=== PATIENT | male | born 1930 | race Caucasian/White ===

== ENCOUNTER 2018-08-05 18:05 | Inpatient (IN) ==
[2018-08-05] MEDS ORDERED: *HR* Dextrose 50 % in Water (Syg) 50 ML SYRINGE IVP PRN (22:37)
[2018-08-05] MEDS ORDERED: D5% in Water 1,000 ML IVC PRN (22:37)
[2018-08-05] MEDS ORDERED: Dextrose Gel 15 GM/37.5 ML TUBE PO PRN ×2 (22:37)
[2018-08-05] MEDS ORDERED: Insulin LISPRO 300 UNITS/3 ML VIAL SQ SCH (22:45)
[2018-08-05 22:53] LABS: Basophils % 0.4 %; Eosinophils # 0.1 K/mcL (0.0-0.6); Eosinophils % 0.6 %; Hematocrit 40.2 % (37.5-50.1); Hemoglobin 13.4 g/dL (12.9-16.9); Immature Granulocytes % 0.4 % (0-4); Lymphocytes # 0.9 K/mcL (0.6-4.6); Lymphocytes % 8.4 %; Mean Corpuscular HGB Conc 33.3 g/dL (31.6-35.5); Mean Corpuscular Hemoglobin 31.6 pg (28.0-33.3); Mean Corpuscular Volume 94.8 fL (83.0-100.0); Mean Platelet Volume 8.4 fL (9.4-12.4); Monocytes % 10.2 %; Neutrophils # 8.1 K/mcL (1.6-8.9); Platelet Count 194 K/mcL (140-400); Red Blood Count 4.24 M/mcL (4.19-5.50)
[2018-08-05 22:57] LABS: INR 1.1; Prothrombin Time 12.2 Seconds (9.4-12.1)
[2018-08-05 23:00] LABS: Activated Partial Thrombo Time 31.2 Seconds (26.0-36.0)
[2018-08-05] MEDS ORDERED: Acetaminophen 325 MG TABLET PO PRN (23:03)
[2018-08-05] MEDS ORDERED: Naloxone 0.4 MG/ML INJ IVP PRN (23:03)
[2018-08-05 23:08] LABS: Blood Urea Nitrogen 19 mg/dL (8-23); Calcium 9.2 mg/dL (8.6-10.3); Carbon Dioxide 22 mEq/L (23-29); Chloride 105 mEq/L (98-107); Glucose 146 mg/dL (70-105); Osmolality,Calculated 285 (280-300); Potassium 4.2 mEq/L (3.5-5.1); Sodium 135 mEq/L (136-145)
[2018-08-05] MEDS ORDERED: 0.9 % Sodium Chloride 1,000 ML IVC SCH (23:15)
[2018-08-06] MEDS: *HR* HYDROcodone/Acet 5/325 mg TABLET PO PRN ×2 (00:19→08:31)
[2018-08-06 01:22] LABS: Basophils % 0.4 %; Eosinophils # 0.1 K/mcL (0.0-0.6); Eosinophils % 1.4 %; Hemoglobin 11.4 g/dL (12.9-16.9); Immature Granulocytes % 0.3 % (0-4); Lymphocytes # 0.8 K/mcL (0.6-4.6); Lymphocytes % 8.4 %; Mean Corpuscular HGB Conc 32.6 g/dL (31.6-35.5); Mean Corpuscular Hemoglobin 30.8 pg (28.0-33.3); Mean Corpuscular Volume 94.6 fL (83.0-100.0); Mean Platelet Volume 8.7 fL (9.4-12.4); Monocytes # 0.9 K/mcL (0.0-1.3); Monocytes % 9.5 %; Neutrophils # 7.3 K/mcL (1.6-8.9); Platelet Count 192 K/mcL (140-400); Red Cell Distribution Width 13.1 % (11.5-14.5)
--- NOTE | 2018-08-06 01:23 | Internal Med History&Physical ---
Date of Encounter: 08/05/18 Time of Encounter: 22:05 Internal Medicine - H&P: HPI Chief complaint: hip fracture Admitted From: Hospital to Hospital Transfer Plans for Post Hospital Care: [facility] History of present illness: Mr. Ariza is an 88 year old male who presents in transfer from [facility] ER with acute left femoral neck fracture. Patient sustained a mechanical fall earlier this evening when he was getting out of his car. He normally ambulates with a walker due to peripheral neuropathy. His aide was bringing his walker to him to the car as he was exiting. However, despite the presence of walker and support, he slipped and fell sustaining a hip injury with subsequent fracture. He was taken to the ER at [place] where they did imaging and noted his fracture. He subsequently transferred here to [facility] for definitive care. Upon my assessment of the patient, he complains of his left hip pain but has no other complaints. Patient and his provide the above history. He has a history of heart disease requiring PCI and stent roughly 8 or 9 years ago. He also has a history of type 2 diabetes, currently diet-controlled. His neuropathy is due to his diabetes he states. He used to take diabetic pills but has lost significant amount of weight and no longer takes medication for his diabetes. Regarding the fall today, he denies any lightheadedness, dizziness, or syncopal spell. Despite his neuropathy and use of a walker, he denies any frequent falls. Past Med Surg Social Fam HX - Past Medical History Attestation: Yes The following information was validated with the patient. Source: patient, obtained from family Medical history: coronary artery disease, GERD, hyperlipidemia, myocardial infarction, thyroid disease, other Additional medical history: NEUROPATHY. Psychiatric history: no psych history - Past Surgical History Surgical History: angioplasty/stent - Social History Smoking Status: Former smoker Smokeless Tobacco Status: No Alcohol use: none Drug use: none Current living situation: Home, With Family Activity Level: Uses cane/walker Recent Out of Country Travel Within the Last 8 Weeks: No - Family History Mother Living Status: Hx Family Cardiac Disorders: No Father Living Status: Hx Family Cardiac Disorders: Yes Internal Medicine - H&P: Meds Plavix 75 mg PO DAILY 12/12/17 [History] Atorvastatin 20 mg PO DAILY 08/05/18 [History] Cetirizine HCl [Zyrtec] 10 mg PO DAILY 08/05/18 [History] Ferrous Sulfate [Iron] 325 mg PO TID 08/05/18 [History] Gabapentin [Neurontin] 300 mg PO TID 08/05/18 [History] Levothyroxine [Synthroid] 112 mcg PO 0630 08/05/18 [History] Pantoprazole Sodium [Protonix] 40 mg PO DAILY 08/05/18 [History] Triamcinolone [Triamcinolone] 1 appl TP AD PRN 08/05/18 [History] 3 Allergy/AdvReac Type Severity Reaction Status Date / Time No Known Allergies Allergy Verified 12/12/17 14:33 - Constitutional Constitutional: no chills, no fever(s) - EENT Eyes: no blurry vision, no change in vision Ears: no ear pain, no tinnitus Nose, mouth and throat: no nasal congestion, no sinus pressure, no sore throat - Cardiovascular Cardiovascular ROS IM: no chest pain, no diaphoresis, no dyspnea, no dyspnea on exertion, no irregular heart rhythm, no lightheadedness, no palpitations, no syncope - Respiratory Respiratory: no cough, no dyspnea, no hemoptysis - Gastrointestinal Gastrointestinal: no abdominal pain, no diarrhea, no hematemesis, no hematochezia, no melena, no nausea, no vomiting - Genitourinary Genitourinary ROS male: no dysuria, no flank pain, no hematuria - Musculoskeletal Musculoskeletal ROS IM: arthralgias, numbness (feet/peripheral neuropathy -- chronic), no back pain, no muscle cramps, no muscle weakness, no myalgias - Integumentary Integumentary IM: no rash, no jaundice - Neurological Neurological ROS: no dizziness, no focal weakness, no frequent falls, no headache(s) - Psychiatric Psychiatric: no anxiety, no depression - Endocrine Endocrine IM: no polydipsia, no polyuria - Allergic/Immunologic Allergic/Immunologic: no wheezing, no GI upset with certain foods - Constitutional Vitals: Temp Pulse Resp BP Pulse Ox 98.8 F 90 16 140/72 96 08/05/18 23:32 08/05/18 23:32 08/05/18 23:32 08/05/18 23:32 08/05/18 23:32 General appearance: Present: cooperative, mild distress, A&O X 3, pleasant, answers questions appropriately Exam: see below - Head Head exam: Present: atraumatic, normal inspection - Eye Eye exam: Present: EOMI, PERRL. Absent: scleral icterus Pupils: Present: normal accommodation - ENT ENT exam: Present: mucous membranes dry, normal exam, normal oropharynx - Neck Neck exam general surgery: Present: full ROM, supple. Absent: tenderness, nuchal rigidity, thyromegaly - Respiratory Respiratory exam: Present: CTAB. Absent: chest wall tenderness, rales, rhonchi , wheezes - Cardiovascular Cardiovascular exam: Present: distant heart sounds, RRR, +S1, +S2. Absent: diastolic murmur, systolic murmur - GI/Abdominal GI/Abdominal exam: Present: normal bowel sounds, soft. Absent: guarding, hepatomegaly, mass, rebound, splenomegaly, tenderness - Extremities Exam Extremities exam: Present: normal capillary refill, normal inspection, tenderness, warm, radial pulses palpable and symmetrical. Absent: calf tenderness, pedal edema Additional comments: pain/swelling left hip - Back Exam Back exam: Absent: CVA tenderness (L), CVA tenderness (R) - Neurological Exam Neurological exam: Present: alert, CN II-XII intact, oriented X3 Additional comments: decreased sensation both feet - Psychiatric Psychiatric exam: Present: normal affect, normal mood - Skin Skin exam: Present: dry, intact, warm Internal Med - H&P Results - Labs CBC & Chem 7: 08/05/18 22:34 08/05/18 21:46 Labs: Short CBC 08/05/18 Range/Units 22:34 WBC 10.2 (4.3-11.1) K/mcL Hgb 13.4 (12.9-16.9) g/dL Hct 40.2 (37.5-50.1) % Plt Count 194 (140-400) K/mcL Neutrophils # 8.1 (1.6-8.9) K/mcL BMP 08/05/18 21:46 Sodium 135 L Potassium 4.2 Chloride 105 Carbon Dioxide 22 L BUN 19 Glucose 146 H Calcium 9.2 - Diagnostic Studies CT scan - pelvis Status: image reviewed by me (left femoral neck fracture) - Assessment and plan (1) Left displaced femoral neck fracture Current Visit: Yes Status: Acute Assessment and plan: 1. Consult orthopedics for surgical repair. 2. Recommend awaiting work-up per hospitalist before taking patient to surgery. 3. Patient will be at moderate risk for heydi-operative morbidity and mortality form a cardiovascular standpoint due to history of CAD and diabetes. 4. Patient need PT/OT and likely ECF/rehab after discharge and surgery. (2) CAD (coronary artery disease) Current Visit: Yes Status: Chronic Assessment and plan: 1. Will order EKG and baseline ECHO to assess LV function. 2. Monitor on telemetry. 3. Await above testing before proceeding with surgery. Qualifiers: Coronary Disease-Associated Artery/Lesion type: [place] artery [place] vs. transplanted heart: [place] heart Associated angina: without angina Qualified Code(s): I25.10 - Atherosclerotic heart disease of [place] coronary artery without angina pectoris (3) Type 2 diabetes mellitus Current Visit: Yes Status: Chronic Assessment and plan: 1. Patient reports diet control. 2. Will place on SSI and monitor glucose closely. 3. Adjust insulin dosing as necessary. Qualifiers: Diabetes mellitus mcc insulin use: without mcc use Diabetes mellitus complication status: with neurologic complications Diabetes mellitus complication detail: with polyneuropathy Qualified Code(s): E11.42 - Type 2 diabetes mellitus with diabetic polyneuropathy (4) DVT prophylaxis Current Visit: Yes Status: Acute Assessment and plan: 1. Heparin SQ.
[2018-08-06 01:46] LABS: BUN/Creatinine Ratio 15 (6-26); Blood Urea Nitrogen 20 mg/dL (8-23); Carbon Dioxide 27 mEq/L (23-29); Chloride 104 mEq/L (98-107); Glucose 158 mg/dL (70-105); INR 1.1; Magnesium 2.3 mg/dL (1.6-2.6); Osmolality,Calculated 288 (280-300); Potassium 4.2 mEq/L (3.5-5.1); Prothrombin Time 12.4 Seconds (9.4-12.1); Sodium 136 mEq/L (136-145); eGFR For Non-African Americans 50 (> 60)
[2018-08-06 02:33] LABS: BUN/Creatinine Ratio 15 (6-26); eGFR For Non-African Americans 52 (> 60)
[2018-08-06] MEDS ORDERED: *HR* Heparin 5,000 UNIT/ML VIAL SQ SCH (06:00)
--- NOTE | 2018-08-06 07:09 | Orthopedic Consult Note ---
Date of Encounter: 08/06/18 Time of Encounter: 07:07 Assessment and Plan (1) Left displaced femoral neck fracture Current Visit: No Status: Acute I did discuss the diagnosis in detail with the patient. He does have a left displaced femoral neck fracture. Treatment options were discussed and my recommendation was for left hip hemiarthroplasty in order to stabilize the hip, provide pain control, and to help facilitate nursing care. The risks discussed included but were not limited to stiffness, bleeding, infection, blood clots, damage to neurovascular structures, tendons, ligaments, and bone. Also discussed was the risk of continued symptoms and possible need for further procedures. I did discuss the anesthesia risks including stroke, heart attack, and . I did discuss the risks of dislocation and prosthetic fracture. I did discuss this all with the patient in simple terms and he did wish to proceed and consent was obtained. History of Present Illness HPI: Mr. Ariza is a 88 year old male who is currently admitted to the hospitalist after a fall that caused a displaced left femoral neck fracture. He is a walker ambulator with baseline neuropathy. He complains of isolated left hip pain. He denies headaches, neck pain, chest pain, abdominal pain, bilateral upper extremity pain, and right lower extremity pain. He denies numbness, tingling, or any other associated signs or symptoms. Symptoms on the left hip and groin include achy and sharp pain which is worse with movement and use and better with rest. No other modifying factors. Past Med Surg Social Fam HX - Past Medical History Medical history: coronary artery disease, GERD, hyperlipidemia, myocardial infarction, thyroid disease, other Additional medical history: NEUROPATHY. Psychiatric history: no psych history - Past Surgical History Surgical History: angioplasty/stent Additional surgical history: REPAIR "LOOSE VEIN IN HEART." - Social History Smoking Status: Former smoker Smokeless Tobacco Status: No Alcohol use: none Drug use: none - Family History Mother Living Status: Hx Family Cardiac Disorders: No Father Living Status: Hx Family Cardiac Disorders: Yes Medications and Allergies Plavix 75 mg PO DAILY 12/12/17 [History] Atorvastatin 20 mg PO DAILY 08/05/18 [History] Cetirizine HCl [Zyrtec] 10 mg PO DAILY 08/05/18 [History] Ferrous Sulfate [Iron] 325 mg PO TID 08/05/18 [History] Gabapentin [Neurontin] 300 mg PO TID 08/05/18 [History] Levothyroxine [Synthroid] 112 mcg PO 0630 08/05/18 [History] Pantoprazole Sodium [Protonix] 40 mg PO DAILY 08/05/18 [History] Triamcinolone [Triamcinolone] 1 appl TP AD PRN 08/05/18 [History] 3 Allergy/AdvReac Type Severity Reaction Status Date / Time No Known Allergies Allergy Verified 12/12/17 14:33 All Systems Reviewed: Constitutional and musculoskeletal systems were reviewed and are negative unless otherwise stated in history of present illness. Physical Exam - Constitutional Vitals: Temp Pulse Resp BP Pulse Ox 99.4 F 98 16 91/53 94 08/06/18 06:39 08/06/18 06:39 08/06/18 06:39 08/06/18 06:39 08/06/18 06:39 Constitutional -Vitals reviewed -The patient is well developed and well nourished. -Mood is pleasant. -The patient is well groomed. Psychiatric -The patient is fully alert and oriented x 3. Respiratory: -Respiratory effort normal Abdomen: -Soft abdomen -Non tender -Non distended: Left upper extremity: -No deformities. The overlying skin is intact. No obvious signs of acute trauma. -No tenderness to palpation throughout. -No significant pain with passive motion of the shoulder, elbow, wrist, and fingers within the limits of the bed. -Able to make an "OK" sign, cross the index and long fingers, and extend the thumb. -Sensation grossly intact to light touch throughout the median, radial, and ulnar distributions. -Radial pulse is present; Fingers have good capillary refill. Right upper extremity: -No deformities. The overlying skin is intact. No obvious signs of acute trauma. -No tenderness to palpation throughout. -No significant pain with passive motion of the shoulder, elbow, wrist, and fingers within the limits of the bed. -Able to make an "OK" sign, cross the index and long fingers, and extend the thumb. -Sensation grossly intact to light touch throughout the median, radial, and ulnar distributions. -Radial pulse is present; Fingers have good capillary refill. Left lower extremity: -The extremity is shortened and externally rotated. The overlying skin is intact. -There is tenderness in the groin region as well as the proximal lateral thigh. -I did not range the hip due to the known fracture. -No tenderness along the distal thigh, leg, ankle, foot, or toes. -Able to dorsiflex and plantarflex the ankle and toes. -Sensation is grossly intact to light touch throughout the sural, saphenous, superficial peroneal, and deep peroneal distributions. -Toes have good capillary refill. Right lower extremity: -No deformities. The overlying skin is intact. No obvious signs of acute trauma. -No tenderness to palpation throughout. -No pain with passive motion of the hip, knee, ankle, and toes within the limits of the bed. -No pain with axial loading of the thigh. -Able to dorsiflex and plantarflex the ankle and toes. -Sensation is grossly intact to light touch throughout the sural, saphenous, superficial peroneal, and deep peroneal distributions. -Toes have good capillary refill. Diagnostic Imaging: I did personally review and interpret the CT scan of the left hip which shows a displaced left femoral neck fracture Results - Labs Result Diagrams: 08/06/18 01:03 08/06/18 01:03 Labs: Abnormal lab results RBC 3.70 M/mcL (4.19-5.50) L 08/06/18 01:03 Hgb 11.4 g/dL (12.9-16.9) L D 08/06/18 01:03 Hct 35.0 % (37.5-50.1) L 08/06/18 01:03 MPV 8.7 fL (9.4-12.4) L 08/06/18 01:03 PT 12.4 Seconds (9.4-12.1) H 08/06/18 01:03 Creatinine 1.36 mg/dL (0.70-1.30) H 08/06/18 01:03 Est GFR (Non-Af Amer) 50 (> 60) L 08/06/18 01:03 Glucose 158 mg/dL (70-105) H 08/06/18 01:03 H & H 08/05/18 08/06/18 Range/Units 22:34 01:03 Hgb 13.4 11.4 L D (12.9-16.9) g/dL Hct 40.2 35.0 L (37.5-50.1) % All other labs normal. Consult Discharge Plan - Plan Referrals: Edwin Bryant, ASSISTED LIVING ASSOCIATE [Primary Care Provider] -
[2018-08-06] MEDS: Insulin LISPRO 300 UNITS/3 ML VIAL SQ SCH ×3 (07:24→21:47)
[2018-08-06] MEDS ORDERED: [UNRECOGNIZED DRUG - OTHER] TP PRN (11:12)
--- NOTE | 2018-08-06 14:43 | Anesthesia Evaluation PreOp ---
Date of Encounter: 08/06/18 Time of Encounter: 15:11 - Past History Planned Operation: LEFT HIP HEMIARTHROPLASTY Cardiac History: [place] (??DATE, AFTER STENT), Hyperlipidemia, Cardiac Stent (??DATE ), Other (CAD) Pulmonary History: Former smoker, COPD [employer] History: Other (PERIPHERAL NEUROPATHY, TREMORS) Other Medical History: Renal (CKD3), Diabetes Type II, Thyroid, GERD, Other ( ANEMIA) Anesthesia History: No Prior Anesthetic Complications, Past Anesthesia Alcohol Use: none Drug use: none Medications and Allergies Clopidogrel [Plavix] 75 mg PO DAILY 12/12/17 [History] Atorvastatin Calcium [Lipitor] 20 mg PO QPM 08/05/18 [History] Cetirizine HCl [Zyrtec] 10 mg PO DAILY 08/05/18 [History] Ferrous Sulfate [Iron] 325 mg PO TID 08/05/18 [History] Gabapentin [Neurontin] 100 mg PO TID 08/05/18 [History] Levothyroxine [Synthroid] 112 mcg PO 0630 08/05/18 [History] Pantoprazole Sodium [Protonix] 40 mg PO DAILY 08/05/18 [History] Triamcinolone [Triamcinolone] 1 appl TP AD PRN 08/05/18 [History] 3 Allergy/AdvReac Type Severity Reaction Status Date / Time No Known Allergies Allergy Verified 12/12/17 14:33 - Meds/Allergy Pre-op Review Medications Reviewed: Yes Allergies Reviewed: Yes Anesthesia Results - Labs 08/06/18 01:03 08/06/18 01:03 Laboratory Last Values WBC 9.1 K/mcL (4.3-11.1) 08/06/18 01:03 RBC 3.70 M/mcL (4.19-5.50) L 08/06/18 01:03 Hgb 11.4 g/dL (12.9-16.9) L D 08/06/18 01:03 Hct 35.0 % (37.5-50.1) L 08/06/18 01:03 MCV 94.6 fL (83.0-100.0) 08/06/18 01:03 MCH 30.8 pg (28.0-33.3) 08/06/18 01:03 MCHC 32.6 g/dL (31.6-35.5) 08/06/18 01:03 RDW 13.1 % (11.5-14.5) 08/06/18 01:03 Plt Count 192 K/mcL (140-400) 08/06/18 01:03 MPV 8.7 fL (9.4-12.4) L 08/06/18 01:03 Immature Gran % 0.3 % (0-4) 08/06/18 01:03 Seg Neutrophils % 80.0 % 08/06/18 01:03 Lymphocytes % 8.4 % 08/06/18 01:03 Monocytes % 9.5 % 08/06/18 01:03 Eosinophils % 1.4 % 08/06/18 01:03 Basophils % 0.4 % 08/06/18 01:03 Neutrophils # 7.3 K/mcL (1.6-8.9) 08/06/18 01:03 Lymphocytes # 0.8 K/mcL (0.6-4.6) 08/06/18 01:03 Monocytes # 0.9 K/mcL (0.0-1.3) 08/06/18 01:03 Eosinophils # 0.1 K/mcL (0.0-0.6) 08/06/18 01:03 Basophils # 0.0 K/mcL (0.0-0.2) 08/06/18 01:03 PT 12.4 Seconds (9.4-12.1) H 08/06/18 01:03 INR 1.1 08/06/18 01:03 APTT 30.0 Seconds (26.0-36.0) 08/06/18 01:03 Sodium 136 mEq/L (136-145) 08/06/18 01:03 Potassium 4.2 mEq/L (3.5-5.1) 08/06/18 01:03 Chloride 104 mEq/L (98-107) 08/06/18 01:03 Carbon Dioxide 27 mEq/L (23-29) 08/06/18 01:03 BUN 20 mg/dL (8-23) 08/06/18 01:03 Creatinine 1.36 mg/dL (0.70-1.30) H 08/06/18 01:03 Est GFR ( Amer) > 60 (> 60) 08/06/18 01:03 Est GFR (Non-Af Amer) 50 (> 60) L 08/06/18 01:03 BUN/Creatinine Ratio 15 (6-26) 08/06/18 01:03 Glucose 158 mg/dL (70-105) H 08/06/18 01:03 Calculated Osmolality 288 (280-300) 08/06/18 01:03 Calcium 9.0 mg/dL (8.6-10.3) 08/06/18 01:03 Magnesium 2.3 mg/dL (1.6-2.6) 08/06/18 01:03 Anesthesia Exam Vital Signs/O2 Sat/Glucose, Most Recent Temp Pulse Resp BP Pulse Ox 98.9 F 87 18 116/72 93 08/06/18 10:40 08/06/18 10:40 08/06/18 10:40 08/06/18 10:40 08/06/18 10:40 Blood Glucose* 126 HEIGHT 1.88 M WEIGHT 87 KG BMI 25 NPO (# of Hours): 8 - HEENT Pupil (Motor): Pupils equal Mallampati: III Teeth: Edentulous Oral Opening: Greater than 3 - Cardiac Rhythm: Regular - Pulmonary Breath Sounds: bilateral Clear Respiratory Effort: Symmetrical - Additional Findings Active Medications Acetaminophen (Tylenol) 650 mg PO Q6H PRN PRN Reason: Mild Pain/Fever Stop: 02/04/19 23:04 Hydrocodone Bitart/Acetaminophen (Brandon 5-325 Mg) 1 tab PO Q6H PRN PRN Reason: Moderate Pain Stop: 02/04/19 23:04 Last Admin: 08/06/18 08:31 Dose: 1 tab Atorvastatin Calcium (Lipitor) 20 mg PO QPM [facility] Stop: 02/05/19 18:01 Clopidogrel Bisulfate (Plavix) 75 mg PO DAILY [facility] Stop: 02/06/19 09:01 Heparin Sodium (Porcine) (Heparin) 5,000 unit SQ Q12HCO [facility] Stop: 02/05/19 06:01 Last Admin: 08/06/18 04:49 Dose: Not Given Sodium Chloride (0.9 % Sodium Chloride) 1,000 mls @ 75 mls/hr IVC .[id number] [facility] Stop: 08/07/18 01:54 Last Admin: 08/06/18 00:16 Dose: 75 mls/hr Insulin Human Lispro (Humalog) 0 units SQ TIDAC [facility] PRN Reason: Protocol Stop: 02/05/19 07:31 Last Admin: 08/06/18 11:23 Dose: Not Given Levothyroxine Sodium (Synthroid) 112 mcg PO 0630 [facility] Stop: 02/06/19 06:31 Loratadine (Claritin) 10 mg PO DAILY [facility] Stop: 02/06/19 09:01 Omeprazole (Prilosec) 20 mg PO DAILY [facility] Stop: 02/06/19 09:01 Anesthesia Assess/Plan ASA Score: 3 Modified Wen Scale for Level of Consciousness: Cooperative, oriented, and tranquil Anesthetic Plan: General Monitoring Plan: Standard Monitors Recovery Plan: PACU
[2018-08-06] MEDS ORDERED: Gabapentin 100 MG CAPSULE PO SCH (15:00)
[2018-08-06] MEDS ORDERED: CeFAZolin Syr 2,000MG/20 ML 2,000 MG/20 ML SYRINGE IVPB ONE (15:29)
[2018-08-06] MEDS ORDERED: Vancomycin 1,000 MG VIAL ONE (15:37)
[2018-08-06] MEDS ORDERED: Ethanol\\Acetic Acid\\Na Ace\\Ben 1,000 ML IRRIG.SOLN IR ONE (15:38)
[2018-08-06] MEDS ORDERED: *HR* PHENYLEPHRINE 1,000 MCG/10 ML SYRINGE IVP ONE (16:38)
[2018-08-06] MEDS ORDERED: *HR* Succinylcholine 200 MG/10 ML VIAL IVP ONE (16:38)
[2018-08-06] MEDS ORDERED: *HR* FentaNYL (PF) 100 MCG/2 ML VIAL ONE (16:38)
[2018-08-06] MEDS ORDERED: Lidocaine -MPF 2% 2 ML VIAL ONE (16:38)
[2018-08-06] MEDS ORDERED: *HR* Propofol 200 MG/20 ML VIAL IVP ONE (16:38)
[2018-08-06] MEDS ORDERED: Lidocaine -MPF 4% 5 ML AMPUL ONE (16:38)
[2018-08-06] MEDS ORDERED: *HR* Labetalol 20 MG/4 ML SYRINGE IVP PRN (16:40)
[2018-08-06] MEDS ORDERED: *HR* HYDROmorphone 2 MG TABLET PO PRN (16:40)
[2018-08-06] MEDS ORDERED: *HR* OxyCODONE Immed Rel 5 MG TABLET PO PRN (16:40)
[2018-08-06] MEDS ORDERED: EPHEDrine 50 MG/ML VIAL ONE (17:23)
--- NOTE | 2018-08-06 17:32 | Event Note ---
Date of Encounter: 08/06/18 Time of Encounter: 17:31 Patient seen and evaluated. Clinically stable. WIll continue to follow in the morning.
[2018-08-06] MEDS ORDERED: Ondansetron 4 MG/2 ML VIAL ONE (17:41)
[2018-08-06] MEDS ORDERED: *HR* Morphine 10 MG/ML VIAL ONE (17:48)
--- NOTE | 2018-08-06 18:08 | Orthopedic Operative Note ---
Date of procedure: 08/06/18 Procedure: OPERATIVE REPORT DATE OF PROCEDURE: 08/06/2018 SURGEON: Gil Bowers MD CHANGE HOUSE ATTENDANT(S): There were no assistants PREOPERATIVE DIAGNOSIS: Left displaced femoral neck fracture POSTOPERATIVE DIAGNOSIS: Left displaced femoral neck fracture PROCEDURE: Left hip hemiarthroplasty ANESTHESIA: Gen. anesthesia PREOPERATIVE ANTIBIOTICS: 2 grams of Ancef ESTIMATED BLOOD LOSS: 100 milliliters SPECIMENS: Left femoral head IMPLANTS: Biomet Echo Fracture stem size 12 with high offset; 56mm bipolar Head ; -6 neck PREOPERATIVE NOTE AND INDICATIONS: This patient is an 88-year-old male who sustained a fall resulting in a left displaced femoral neck fracture. Treatment options were discussed and the recommendation was for left hip hemiarthroplasty to stabilize left hip to provide pain control and to help facilitate nursing care. The surgical plan was discussed with the patient. The risks, benefits, alternatives, and potential complications of this procedure were discussed with the patient including injury to veins, arteries, nerves, tendons, ligaments, and bone. Also discussed were the risks of infection, bleeding, pain, blood clots, the possible need for a blood transfusion, the possible need for further procedures, heart attack, stroke, and . Additional risks include prosthetic dislocation, fracture, and infection. All of this was explained in simple terms, and the patient verbalized understanding and wished to proceed. Consent was given to proceed with surgery. PROCEDURE: The patient was seen in the preoperative holding area where the identify and the consent were confirmed. The left hip was marked. Final questions were answered. The patient was brought back to the operating room. A huddle was performed with the patient and all vital surgical team members confirming patient identity, the correct procedure, and the correct operative site. General anesthesia was administered. The patient was placed supine on the operating room table and then placed in the right lateral decubitus position. The axillary roll was placed and all bony prominences were padded. The left lower extremity was prepped and draped in the usual sterile fashion. A surgical time out was performed immediately preceding the incision with all personnel in the operating room to confirm patient identity, the correct operative site and extremity, correct radiographic studies, availability of appropriate surgical equipment, and agreement on the planned procedure. A 15 cm longitudinal curvilinear incision was made and dissection proceeded through the subcutaneous tissue using a Bovie for electrocautery. The fascia was encountered and incised splitting the fibers of the gluteus dontae proximally. The Charnley retractor was placed. A Cobra was placed under the gluteus medius and the piriformis was taken down and tagged. While internally rotating the femur the short external rotators and the capsule was taken down in 1 sleeve. This exposed the fracture and an osteotomy was made 1 cm above the lesser trochanter. The femoral head was removed with a corkscrew. Pulvinar and the round ligament were debrided. The cartilage of the acetabulum was intact. The femoral head was sized and the 56 mm sizer fit appropriately. The femoral shaft was elevated and a box osteotome was used to lateralize. The canal finder was used and shaft reaming went up to a size 12. Broaching commenced and the 12 broach fit nicely and had good rotational stability. The trial head and -6 neck were placed and the hip was articulated and felt to be accurate length. The hip was stable through a functional range of motion. The hip was disarticulated and the trial components were removed. The hip was washed with 3 L of saline. The definitive stem was tapped into position, and the definitive head was impacted onto the Ballesteros taper. The hip was articulated and noted to be stable through a functional range of motion. After final irrigation 1 g of vancomycin powder was placed into the hip joint and the capsule was closed with FiberWire stitches through drill holes in the greater trochanter and the piriformis was repaired to the gluteus medius insertion. The Charnley retractor was removed and the wound was irrigated and the fascia closed with 0 Vicryl stitches. The skin was closed with a combination of 0 Vicryl, 3-0 Vicryl, and neno. A sterile honeycomb dressing was applied. The patient was placed supine in her hospital bed. The instrument, sponge, and needle counts were correct after wound closure. POST OPERATIVE PLAN: Weight Bearing: Weightbearing as tolerated to bilateral lower extremities DVT Prophylaxis: Aspirin 325 mg by mouth twice a day Activity: Activities as tolerated with the assistance of therapy Wound Care: Keep the dressing clean, dry, and intact. Pain Control: Per the hospitalist Perioperative antibiotic prophylaxis: [facility] Social work for discharge planning Follow Up: 2 weeks Was there an special education educational assistant present: No Estimated blood loss (cc): 1
--- NOTE | 2018-08-06 18:41 | Anesthesia Evaluation Post Op ---
Date of Encounter: 08/06/18 Time of Encounter: 18:51 - Discharge PostOp Status: Transfer Patient to floor (Patient's vital signs have been reviewed. Patient is stable postoperatively and has adequately recovered from anesthesia. Patient is determined to have stable airway patency and respiratory function including respiratory rate and oxygen saturation. Patient has a stable heart rate, blood pressure and adequate hydration. Patients mental status is acceptable. Patients temperature is appropriate. Pain and nausea are adequately controlled.)
[2018-08-06] MEDS ORDERED: Acetaminophen 325 MG TABLET PO PRN (20:46)
[2018-08-06] MEDS ORDERED: Naloxone 0.4 MG/ML INJ IVP PRN (20:50)
[2018-08-06] MEDS ORDERED: D5% in Water 1,000 ML IVC PRN (20:51)
[2018-08-06] MEDS ORDERED: *HR* Dextrose 50 % in Water (Syg) 50 ML SYRINGE IVP PRN (20:51)
[2018-08-06] MEDS ORDERED: Dextrose Gel 15 GM/37.5 ML TUBE PO PRN ×2 (20:51)
[2018-08-06] MEDS ORDERED: *HR* HYDROmorphone (PF) 1 MG/ML SYRINGE IVP PRN (20:54)
[2018-08-06] MEDS: Aspirin 325 MG TABLET PO SCH (21:46)
[2018-08-06] MEDS: Gabapentin 100 MG CAPSULE PO SCH (21:46)
[2018-08-06] MEDS: Ringers Solution, Lactated 1,000 ML IVC SCH (21:49)
[2018-08-07] MEDS: *HR* OxyCODONE/APAP 5/325 TABLET PO PRN ×3 (00:31→18:49)
[2018-08-07 01:36] LABS: Hemoglobin 9.9 g/dL (12.9-16.9)
[2018-08-07 01:59] LABS: BUN/Creatinine Ratio 20 (6-26); Blood Urea Nitrogen 21 mg/dL (8-23); Calcium 8.3 mg/dL (8.6-10.3); Carbon Dioxide 23 mEq/L (23-29); Chloride 104 mEq/L (98-107); Glucose 169 mg/dL (70-105); Osmolality,Calculated 289 (280-300); Potassium 4.2 mEq/L (3.5-5.1); Sodium 136 mEq/L (136-145); eGFR For Non-African Americans > 60 (> 60)
[2018-08-07] MEDS: Aspirin 325 MG TABLET PO SCH ×2 (08:46→21:30)
[2018-08-07] MEDS: Loratadine 10 MG TABLET PO SCH (08:46)
[2018-08-07] MEDS: Gabapentin 100 MG CAPSULE PO SCH ×3 (08:46→21:30)
[2018-08-07] MEDS: Insulin LISPRO 300 UNITS/3 ML VIAL SQ SCH ×4 (08:47→21:30)
[2018-08-07] MEDS ORDERED: Loratadine 10 MG TABLET PO SCH (09:00)
[2018-08-07] MEDS: Ringers Solution, Lactated 1,000 ML IVC SCH (11:48)
--- NOTE | 2018-08-07 16:18 | Internal Med Progress Note ---
Hospitalist Progress Note - Encounter Date of Encounter: 08/07/18 Time of Encounter: 16:15 - Subjective Interval History: Seen and evaluated ant bedside, patient reports abdominal pain and abdominal distention, denies nausea, vomiting. Reports that he has not passed any urine today. Denies fever, chills, shortness of breath, or chest pain. - Exam Vitals: Temp Pulse Resp BP Pulse Ox 99.9 F H 103 18 110/35 90 08/07/18 15:19 08/07/18 15:19 08/07/18 15:19 08/07/18 15:19 08/07/18 15:19 Exam: General: Alert and oriented 1. No oriented to time or place. Mild distress due to abdominal pain Cardiovascular: Normal S1 & S2, no rubs, murmurs or gallops. No JVD. Pulse regular. Lungs: Clear breath sounds to auscultation bilaterally, no wheezes or crackles. Abdomen: Distended. Hypoactive bowel sounds, in all 4 quadrants. Soft, non- tender, no rigidity, no guarding. Extremities: No deformity, no edema, no tenderness, no joint swelling or clubbing. Neurological: CN II-XII intact. Rest of the physical exam is non contributory - Assessment and Plan (1) Left displaced femoral neck fracture Current Visit: No Status: Acute Assessment and Plan: Status post Left hip hemiarthroplasty Plan: - Plan of care as per orthopedic recommendation. - Continue Percocet for pain control. - Started on docusate senna (2) CAD (coronary artery disease) Current Visit: Yes Status: Chronic Assessment and Plan: We will continue dual antiplatelet with aspirin and Plavix (3) Type 2 diabetes mellitus Current Visit: Yes Status: Chronic Assessment and Plan: Plan: - Continue lispro before meals and sliding scale - Add Levemir 5 units BID. - Diabetic diet (4) DVT prophylaxis Current Visit: Yes Status: Acute Assessment and Plan: We will restart heparin 5000 units subcutaneous twice a day. For DVT prophylaxis (5) Abdominal pain Current Visit: Yes Status: Acute Assessment and Plan: Complaints of abdominal distention. Bloating. Denies nausea or vomiting. Reports no having passed any urine today. Possible Ileus vs constipation due to Opiods? Plan: - Started on stool softener - F/U KUB - Intermittent urinary catheterisation - Continue lactate ringer @75mls/hr (6) Hypothyroidism Current Visit: Yes Status: Acute Assessment and Plan: Plan: - To continue levothyroxine 112 mcg daily - Time Spent with Patient Total time spent is greater than 50% in coordination of care (as documented) at patient's floor/unit and/or counseling patient: Greater than 35 minutes Plan of Care Discussed with: family Internal Medicine: Result - Labs CBC & Chem 7: 08/07/18 00:48 08/07/18 00:48 Labs: Short CBC 08/07/18 Range/Units 00:48 Hgb 9.9 L D (12.9-16.9) g/dL Hct 31.0 L (37.5-50.1) % BMP 08/07/18 00:48 Sodium 136 Potassium 4.2 Chloride 104 Carbon Dioxide 23 BUN 21 Creatinine 1.06 Glucose 169 H Calcium 8.3 L - ABG Interpretation ABG results: PT/INR, D-dimer PT 12.4 Seconds (9.4-12.1) H 08/06/18 01:03 - Impressions Impressions Hip X-Ray 08/06/18 17:50 IMPRESSION: Postoperative left hip hemiarthroplasty. D/ / 08/06/2018 18:21:32 Farzad George MD / jagdish Interpreting Provider: Farzad George MD - VTE Documentation of Mechanical Device: Intermittent pneumatic compression device Consult Discharge Plan - Plan Referrals: Edwin Bryant, NURSING COORDINATOR [Primary Care Provider] - (2) CAD (coronary artery disease) Qualifiers: Coronary Disease-Associated Artery/Lesion type: [place] artery [place] vs. transplanted heart: [place] heart Associated angina: without angina Qualified Code(s): I25.10 - Atherosclerotic heart disease of [place] coronary artery without angina pectoris (3) Type 2 diabetes mellitus Qualifiers: Diabetes mellitus fci insulin use: without longwall headgate operator use Diabetes mellitus complication status: with neurologic complications Diabetes mellitus complication detail: with polyneuropathy Qualified Code(s): E11.42 - Type 2 diabetes mellitus with diabetic polyneuropathy (5) Abdominal pain Qualifiers: Abdominal location: generalized Qualified Code(s): R10.84 - Generalized abdominal pain (6) Hypothyroidism Qualifiers: Hypothyroidism type: unspecified Qualified Code(s): E03.9 - Hypothyroidism, unspecified
[2018-08-07] MEDS ORDERED: *HR* Heparin 5,000 UNIT/ML VIAL SQ SCH (18:00)
--- NOTE | 2018-08-07 18:01 | Orthopedics Progress Note ---
Date of Encounter: 08/07/18 Time of Encounter: 17:58 - Assessment and Plan (1) Left displaced femoral neck fracture Current Visit: No Status: Acute Subjective Interval history: S: Resting in bed comfortably O: AFVSS Left hip dressing is intact Neurovascularly intact A: Left hip hemiarthroplasty P: Continue WBAT B/L LE Posterior hip precautions Dressing change tomorrow Hospitalist has restarted heparing for DVT prophylaxis, and therefore I will discontinue ASA 325 PO BID Upon discharge, continue ASA 325 mg PO BID if okay with hospitalist Objective Vital signs: Vital Signs Temp Pulse Resp BP Pulse Ox 08/07/18 15:19 99.9 F H 103 18 110/35 90 08/07/18 10:00 98.5 F 83 16 112/68 95 08/07/18 07:34 99.1 F 86 16 105/67 97 08/07/18 04:30 100.2 F H 78 16 100/64 95 08/06/18 19:07 97.9 F 103 14 109/63 94 08/06/18 18:53 99.4 F 101 16 110/97 96 08/06/18 18:43 98 16 108/56 95 08/06/18 18:33 99 16 111/59 96 08/06/18 18:23 99.4 F 101 16 104/64 95 08/06/18 18:13 101 16 119/64 96 08/06/18 18:03 108 16 90/64 96 Intake and Output 08/07/18 08/07/18 08/07/18 07:59 15:59 23:59 Intake Total 100 / 100 1000 / 1000 Output Total 225 / 225 Balance 100 / 100 1000 / 1000 -225 / -225 Intake: IV Fluids 100 / 100 1000 / 1000 Lactated Ringers 1,000 ML @ 75 900 / 900 mls/hr IVC .[id number] ABDIRAHMAN Rx#: [id number] Ancef 2,000 MG In 0.9 % Sodium 100 / 100 100 / 100 Chloride 100 ML @ 200 mls/hr IVPB Q8HR ABDIRAHMAN Rx#:[id number] Output: Straight Cath 225 / 225 Other: Blood Glucose* 152 176 139 - Labs CBC & BMP: 08/07/18 00:48 08/07/18 00:48 Labs: Abnormal lab results RBC 3.70 M/mcL (4.19-5.50) L 08/06/18 01:03 Hgb 9.9 g/dL (12.9-16.9) L D 08/07/18 00:48 Hct 31.0 % (37.5-50.1) L 08/07/18 00:48 MPV 8.7 fL (9.4-12.4) L 08/06/18 01:03 PT 12.4 Seconds (9.4-12.1) H 08/06/18 01:03 Glucose 169 mg/dL (70-105) H 08/07/18 00:48 POC Glucose 126 mg/dL (70-99) H 08/06/18 11:05 Calcium 8.3 mg/dL (8.6-10.3) L 08/07/18 00:48 - VTE Documentation of Mechanical Device: Intermittent pneumatic compression device Consult Discharge Plan - Plan Referrals: Edwin Bryant, GENERAL FARM HAND [Primary Care Provider] -
[2018-08-07] MEDS: Sennosides/Docusate Sodium TABLET PO SCH (21:30)
[2018-08-07] MEDS: Insulin DETEMIR 100 UNIT/ML X5UNITS SQ SCH (21:31)
[2018-08-08 02:50] LABS: Basophils % 0.3 %; Eosinophils # 0.2 K/mcL (0.0-0.6); Hematocrit 26.2 % (37.5-50.1); Hemoglobin 8.6 g/dL (12.9-16.9); Immature Granulocytes % 0.3 % (0-4); Lymphocytes # 1.3 K/mcL (0.6-4.6); Lymphocytes % 14.5 %; Mean Corpuscular HGB Conc 32.8 g/dL (31.6-35.5); Mean Corpuscular Hemoglobin 31.6 pg (28.0-33.3); Mean Corpuscular Volume 96.3 fL (83.0-100.0); Mean Platelet Volume 9.3 fL (9.4-12.4); Monocytes # 1.2 K/mcL (0.0-1.3); Neutrophils # 6.4 K/mcL (1.6-8.9); Platelet Count 144 K/mcL (140-400); Red Blood Count 2.72 M/mcL (4.19-5.50); Red Cell Distribution Width 13.2 % (11.5-14.5); Segmented Neutrophils % 69.9 %
[2018-08-08 03:11] LABS: BUN/Creatinine Ratio 27 (6-26); Blood Urea Nitrogen 33 mg/dL (8-23); Calcium 8.1 mg/dL (8.6-10.3); Carbon Dioxide 24 mEq/L (23-29); Chloride 103 mEq/L (98-107); Glucose 136 mg/dL (70-105); Osmolality,Calculated 281 (280-300); Potassium 4.3 mEq/L (3.5-5.1); Sodium 131 mEq/L (136-145); eGFR For Non-African Americans 56 (> 60)
--- NOTE | 2018-08-08 07:06 | Orthopedics Progress Note ---
Date of Encounter: 08/08/18 Time of Encounter: 07:05 - Assessment and Plan (1) Left displaced femoral neck fracture Current Visit: No Status: Acute Subjective Interval history: S: Resting in bed comfortably Pain is well-controlled to the left hip O: AFVSS Left hip dressing is intact Neurovascularly intact A: Left hip hemiarthroplasty P: Continue WBAT B/L LE Posterior hip precautions Dressing change today Continue aspirin 325 mg by mouth twice a day for DVT prophylaxis I did discontinue the heparin to avoid risk of bleeding and wound complications Objective Vital signs: Vital Signs Temp Pulse Resp BP Pulse Ox 08/08/18 05:05 98.1 F 81 16 105/65 99 08/07/18 23:15 98.9 F 89 18 101/55 95 08/07/18 20:18 100.6 F H 95 18 112/55 91 08/07/18 15:19 99.9 F H 103 18 110/35 90 08/07/18 10:00 98.5 F 83 16 112/68 95 08/07/18 07:34 99.1 F 86 16 105/67 97 Intake and Output 08/07/18 08/07/18 08/08/18 15:59 23:59 07:59 Intake Total 1000 / 1000 Output Total 225 / 225 300 / 300 Balance 1000 / 1000 -225 / -225 -300 / -300 Intake: IV Fluids 1000 / 1000 Lactated Ringers 1,000 ML @ 75 900 / 900 mls/hr IVC .[id number] ABDIRAHMAN Rx#: [id number] Ancef 2,000 MG In 0.9 % Sodium 100 / 100 Chloride 100 ML @ 200 mls/hr IVPB Q8HR ABDIRAHMAN Rx#:[id number] Output: Urine 300 / 300 Straight Cath 225 / 225 Other: Blood Glucose* 176 170 - Labs CBC & BMP: 08/08/18 02:05 08/08/18 02:05 Labs: Abnormal lab results RBC 2.72 M/mcL (4.19-5.50) L 08/08/18 02:05 Hgb 8.6 g/dL (12.9-16.9) L 08/08/18 02:05 Hct 26.2 % (37.5-50.1) L 08/08/18 02:05 MPV 9.3 fL (9.4-12.4) L 08/08/18 02:05 PT 12.4 Seconds (9.4-12.1) H 08/06/18 01:03 Sodium 131 mEq/L (136-145) L 08/08/18 02:05 BUN 33 mg/dL (8-23) H 08/08/18 02:05 Est GFR (Non-Af Amer) 56 (> 60) L 08/08/18 02:05 BUN/Creatinine Ratio 27 (6-26) H 08/08/18 02:05 Glucose 136 mg/dL (70-105) H 08/08/18 02:05 POC Glucose 170 mg/dL (70-99) H 08/07/18 20:23 Calcium 8.1 mg/dL (8.6-10.3) L 08/08/18 02:05 - VTE Documentation of Mechanical Device: Intermittent pneumatic compression device Consult Discharge Plan - Plan Referrals: Edwin Bryant, JAVASCRIPT PROGRAMMER [Primary Care Provider] -
[2018-08-08] MEDS: Insulin LISPRO 300 UNITS/3 ML VIAL SQ SCH ×4 (09:16→21:11)
[2018-08-08] MEDS: Insulin DETEMIR 100 UNIT/ML X5UNITS SQ SCH ×2 (09:28→21:10)
[2018-08-08] MEDS: Sennosides/Docusate Sodium TABLET PO SCH ×2 (09:28→21:10)
[2018-08-08] MEDS: Gabapentin 100 MG CAPSULE PO SCH ×3 (09:28→21:10)
[2018-08-08] MEDS: Aspirin 325 MG TABLET PO SCH ×2 (09:28→21:09)
[2018-08-08] MEDS: Loratadine 10 MG TABLET PO SCH (09:28)
--- NOTE | 2018-08-08 15:20 | Internal Med Progress Note ---
Hospitalist Progress Note - Encounter Date of Encounter: 08/08/18 Time of Encounter: 15:16 - Subjective Interval History: Seen and evaluated ant bedside, reports feelinf better than yesterday, denies urinary retention, "I have been able to urinate today", denies abdominal pain, nausea or vomiting but refers that he has not have a bowel movement yet. - Exam Vitals: Temp Pulse Resp BP Pulse Ox 98.3 F 80 16 94/60 98 08/08/18 11:58 08/08/18 11:58 08/08/18 11:58 08/08/18 11:58 08/08/18 11:58 Exam: General: Alert and oriented 1. No oriented to time or place. No acute distress. Cardiovascular: Normal S1 & S2, no rubs, murmurs or gallops. No JVD. Lungs: Clear breath sounds to auscultation bilaterally, no wheezes or crackles. Abdomen: Soft, normo-active bowel sounds, in all 4 quadrants. non-tender, no rigidity, no guarding. Extremities: No deformity, no edema, no tenderness, no joint swelling or clubbing. clean surgical dressing in the left lower extremity. Neurological: CN II-XII intact. Rest of the physical exam is non contributory - Assessment and Plan (1) Left displaced femoral neck fracture Current Visit: No Status: Acute Assessment and Plan: Plan: - Pain control as per Orthopedic team - PO-OT - Patient scheduled to be transferred to rehabilitation on Saturday (2) CAD (coronary artery disease) Current Visit: Yes Status: Chronic Assessment and Plan: Plan: - continue dual antiplatelet: aspirin and Plavix (3) Type 2 diabetes mellitus Current Visit: Yes Status: Chronic Assessment and Plan: Blood sugar well controlled Plan: - levemir 5 units BID and Lispro sliding scale AC (4) DVT prophylaxis Current Visit: Yes Status: Acute Assessment and Plan: Plan: - No chemical DVT prophylaxis with heparin as per Ortho recommendations. - Aspirin 325 for DVT prophylaxis (5) Hypothyroidism Current Visit: Yes Status: Acute Assessment and Plan: Plan: - To continue levothyroxine 112 mcg daily (6) Anemia Current Visit: Yes Status: Chronic Assessment and Plan: Possible due to acute blood loss following surgical procedure. Plan: - F/U am CBC - No need for PRBCs transfusion at this time - Will consider transfusing if patient becomes symptomatic or Hb <7 or Hct <23. (7) CARLOS (acute kidney injury) Current Visit: Yes Status: Acute Assessment and Plan: Plan: - Continue gentle IV hydration with Lactate ringer @75mls/hr - Time Spent with Patient Total time spent is greater than 50% in coordination of care (as documented) at patient's floor/unit and/or counseling patient: 25 - 35 minutes Plan of Care Discussed with: patient (the family and the nurse.) Internal Medicine: Result - Labs CBC & Chem 7: 08/08/18 02:05 08/08/18 02:05 Labs: Short CBC 08/08/18 Range/Units 02:05 WBC 9.2 (4.3-11.1) K/mcL Hgb 8.6 L (12.9-16.9) g/dL Hct 26.2 L (37.5-50.1) % Plt Count 144 (140-400) K/mcL Neutrophils # 6.4 (1.6-8.9) K/mcL BMP 08/08/18 02:05 Sodium 131 L Potassium 4.3 Chloride 103 Carbon Dioxide 24 BUN 33 H Creatinine 1.23 Glucose 136 H Calcium 8.1 L - ABG Interpretation ABG results: PT/INR, D-dimer PT 12.4 Seconds (9.4-12.1) H 08/06/18 01:03 - Impressions Impressions KUB X-Ray 08/07/18 16:13 IMPRESSION: Indeterminate bowel-gas pattern. D/ / Brett Hannah MD / Brett Hannah MD Interpreting Provider: Brett Hannah MD Retroperitoneum Ultrasound 08/07/18 21:00 IMPRESSION: Bilateral renal cortical thinning. No hydronephrosis or hydroureter. Prostatic hypertrophy. D/ / Rolando Kyle MD / Rolando Kyle MD Interpreting Provider: Rolando Kyle MD - VTE Documentation of Mechanical Device: Intermittent pneumatic compression device Consult Discharge Plan - Plan Referrals: Edwin Bryant, PIPE BOWLS PAINT TRIMMER [Primary Care Provider] - (2) CAD (coronary artery disease) Qualifiers: Coronary Disease-Associated Artery/Lesion type: [place] artery [place] vs. transplanted heart: [place] heart Associated angina: without angina Qualified Code(s): I25.10 - Atherosclerotic heart disease of [place] coronary artery without angina pectoris (3) Type 2 diabetes mellitus Qualifiers: Diabetes mellitus group home insulin use: without filler leaf cutter long use Diabetes mellitus complication status: with neurologic complications Diabetes mellitus complication detail: with polyneuropathy Qualified Code(s): E11.42 - Type 2 diabetes mellitus with diabetic polyneuropathy (5) Hypothyroidism Qualifiers: Hypothyroidism type: unspecified Qualified Code(s): E03.9 - Hypothyroidism, unspecified (6) Anemia Qualifiers: Anemia type: unspecified type Qualified Code(s): D64.9 - Anemia, unspecified
[2018-08-09 00:56] LABS: Basophils % 0.3 %; Eosinophils # 0.3 K/mcL (0.0-0.6); Eosinophils % 3.2 %; Hematocrit 24.3 % (37.5-50.1); Hemoglobin 7.9 g/dL (12.9-16.9); Immature Granulocytes % 0.4 % (0-4); Lymphocytes # 0.9 K/mcL (0.6-4.6); Lymphocytes % 10.4 %; Mean Corpuscular HGB Conc 32.5 g/dL (31.6-35.5); Mean Corpuscular Hemoglobin 30.7 pg (28.0-33.3); Mean Corpuscular Volume 94.6 fL (83.0-100.0); Mean Platelet Volume 9.1 fL (9.4-12.4); Neutrophils # 6.7 K/mcL (1.6-8.9); Platelet Count 164 K/mcL (140-400); Red Blood Count 2.57 M/mcL (4.19-5.50); Red Cell Distribution Width 13.2 % (11.5-14.5); Segmented Neutrophils % 74.7 %
[2018-08-09 01:11] LABS: BUN/Creatinine Ratio 29 (6-26); Blood Urea Nitrogen 28 mg/dL (8-23); Calcium 8.3 mg/dL (8.6-10.3); Carbon Dioxide 25 mEq/L (23-29); Chloride 102 mEq/L (98-107); Glucose 123 mg/dL (70-105); Magnesium 2.1 mg/dL (1.6-2.6); Osmolality,Calculated 283 (280-300); Sodium 133 mEq/L (136-145); eGFR For Non-African Americans > 60 (> 60)
[2018-08-09] MEDS: Insulin LISPRO 300 UNITS/3 ML VIAL SQ SCH ×4 (08:29→21:48)
[2018-08-09] MEDS: Aspirin 325 MG TABLET PO SCH ×2 (09:15→21:48)
[2018-08-09] MEDS: Insulin DETEMIR 100 UNIT/ML X5UNITS SQ SCH ×2 (09:15→21:48)
[2018-08-09] MEDS: Gabapentin 100 MG CAPSULE PO SCH ×3 (09:15→21:41)
[2018-08-09] MEDS: Sennosides/Docusate Sodium TABLET PO SCH ×2 (09:15→21:41)
[2018-08-09] MEDS: Loratadine 10 MG TABLET PO SCH (09:15)
[2018-08-09] MEDS: *HR* OxyCODONE/APAP 5/325 TABLET PO PRN ×2 (09:25→17:24)
--- NOTE | 2018-08-09 10:05 | Orthopedics Progress Note ---
Date of Encounter: 08/09/18 Time of Encounter: 10:03 - Assessment and Plan (1) Left displaced femoral neck fracture Current Visit: No Status: Acute Subjective Interval history: S: Resting in bed comfortably Pain is well-controlled to the left hip O: AFVSS Left hip dressing is intact Neurovascularly intact A: Left hip hemiarthroplasty P: Continue WBAT B/L LE Posterior hip precautions Continue aspirin 325 mg by mouth twice a day for DVT prophylaxis The hemoglobin intraoperatively and given his cardiac history couple with the acute blood loss anemia I did order one unit to be transfused today followed by 20 mg of Lasix Anticipate discharge tomorrow to [facility] Objective Vital signs: Vital Signs Temp Pulse Resp BP Pulse Ox 08/09/18 07:24 98.8 F 82 16 113/57 94 08/09/18 04:07 98.2 F 83 18 115/68 94 08/08/18 22:27 99.2 F 87 16 104/60 98 08/08/18 18:44 98.5 F 89 16 106/59 93 08/08/18 15:45 98.9 F 88 16 103/62 98 08/08/18 11:58 98.3 F 80 16 94/60 98 Intake and Output 08/08/18 08/09/18 08/09/18 23:59 07:59 15:59 Output Total 400 / 400 Balance -400 / -400 Output: Urine 400 / 400 Other: Blood Glucose* 147 104 - Labs CBC & BMP: 08/09/18 00:30 08/09/18 00:30 Labs: Abnormal lab results RBC 2.57 M/mcL (4.19-5.50) L 08/09/18 00:30 Hgb 7.9 g/dL (12.9-16.9) L 08/09/18 00:30 Hct 24.3 % (37.5-50.1) L 08/09/18 00:30 MPV 9.1 fL (9.4-12.4) L 08/09/18 00:30 PT 12.4 Seconds (9.4-12.1) H 08/06/18 01:03 Sodium 133 mEq/L (136-145) L 08/09/18 00:30 BUN 28 mg/dL (8-23) H 08/09/18 00:30 BUN/Creatinine Ratio 29 (6-26) H 08/09/18 00:30 Glucose 123 mg/dL (70-105) H 08/09/18 00:30 POC Glucose 147 mg/dL (70-99) H 08/08/18 19:44 Calcium 8.3 mg/dL (8.6-10.3) L 08/09/18 00:30 - VTE Documentation of Mechanical Device: Intermittent pneumatic compression device Consult Discharge Plan - Plan Referrals: Edwin Bryant, ARTIFICIAL STONE SETTER [Primary Care Provider] -
--- NOTE | 2018-08-09 11:36 | Electrocardiograph Report ---
[address] [place], [place] [address] Test Date: 2018-08-05 Pat Name: Brittny Ariza Department: 114 Room: [facility] Gender: M Sliver Lap Machine Tender: CLEOPATRA : 1930 Requested By: Bertrand Arenas Order Number: [id number] Reading MD: Duglas Pryor Measurements Intervals [place] Rate: 79 P: 235 W[place]: 108 QRS: 52 QRSD: 82 T: 78 QT: 373 QTc: 408 Interpretive Statements SINUS RHYTHM WITH SHORT [place] INTERVAL ST-T ABNORMALITY, CONSIDER ANTERIOR ISCHEMIA Electronically Signed On 08-09-2018 11:34:13 EDT by Duglas Pryor
--- NOTE | 2018-08-09 14:59 | Internal Med Progress Note ---
Hospitalist Progress Note - Encounter Date of Encounter: 08/09/18 Time of Encounter: 14:57 - Subjective Interval History: Evaluated at bedside, patient does not voice any complaints, denies pain in the lower extremities. Reports that he is having regular bowel movement, no difficulty with urination. Denies shortness of breath, fever, chills. No 24- hour event. - Exam Vitals: Temp Pulse Resp BP Pulse Ox 98.1 F 75 16 96/54 99 08/09/18 11:36 08/09/18 11:36 08/09/18 11:36 08/09/18 11:36 08/09/18 11:36 Exam: General: Alert and oriented 1. No oriented to time or place. No acute distress. Cardiovascular: Normal S1 & S2, no rubs, murmurs or gallops. No JVD. Lungs: Clear breath sounds to auscultation bilaterally, no wheezes or crackles. Abdomen: Soft, normo-active bowel sounds, in all 4 quadrants. non-tender, no rigidity, no guarding. Extremities: Slightly edematous left lower extremity, mildly tender to touch. clean surgical dressing in the left lower extremity. Neurological: CN II-XII intact. Rest of the physical exam is non contributory - Assessment and Plan (1) Anemia Current Visit: Yes Status: Chronic Assessment and Plan: Possible acute blood loss anemia postop. Plan: - Transfuse 1 packed RBC. - CBC 1 hour posttransfusion. - Follow a.m. CBC. (2) Left displaced femoral neck fracture Current Visit: No Status: Acute Assessment and Plan: S/P Left hip hemiarthroplasty Plan: - Continue with Percocet 1 tablet by mouth every 6 hours when necessary for pain - PO-OT daily - Senna docusate 2 tablets by mouth twice a day - Incentive spirometry. (3) CAD (coronary artery disease) Current Visit: Yes Status: Chronic Assessment and Plan: Plan: - continue dual antiplatelet: aspirin and Plavix (4) Type 2 diabetes mellitus Current Visit: Yes Status: Chronic Assessment and Plan: Blood sugar well controlled. Plan: - Continue with Levemir 5 units twice a day and lispro sliding scale before meals (5) Hypothyroidism Current Visit: Yes Status: Acute Assessment and Plan: Plan: - To continue levothyroxine 112 mcg daily (6) CARLOS (acute kidney injury) Current Visit: Yes Status: Resolved Assessment and Plan: CARLOS resolved. Possible due to low preload. Plan: - Discontinue IV fluid. (7) DVT prophylaxis Current Visit: Yes Status: Acute Assessment and Plan: On aspirin 325 for DVT prophylaxis. As per orthopedic recommendation - Summary of Assessment and Plan Summary of Assessment and Plan: Patient is is scheduled to be transferred to rehabilitation tomorrow. - Time Spent with Patient Total time spent is greater than 50% in coordination of care (as documented) at patient's floor/unit and/or counseling patient: Greater than 35 minutes Plan of Care Discussed with: patient (Family and nurse.) Internal Medicine: Result - Labs CBC & Chem 7: 08/09/18 00:30 08/09/18 00:30 Labs: Short CBC 08/09/18 Range/Units 00:30 WBC 9.0 (4.3-11.1) K/mcL Hgb 7.9 L (12.9-16.9) g/dL Hct 24.3 L (37.5-50.1) % Plt Count 164 (140-400) K/mcL Neutrophils # 6.7 (1.6-8.9) K/mcL BMP 08/09/18 00:30 Sodium 133 L Potassium 4.0 Chloride 102 Carbon Dioxide 25 BUN 28 H Creatinine 0.96 Glucose 123 H Calcium 8.3 L - ABG Interpretation ABG results: PT/INR, D-dimer PT 12.4 Seconds (9.4-12.1) H 08/06/18 01:03 - VTE Documentation of Mechanical Device: Intermittent pneumatic compression device Consult Discharge Plan - Plan Referrals: Edwin Bryant, WAY INSPECTOR [Primary Care Provider] - (1) Anemia Qualifiers: Anemia type: unspecified type Qualified Code(s): D64.9 - Anemia, unspecified (3) CAD (coronary artery disease) Qualifiers: Coronary Disease-Associated Artery/Lesion type: [place] artery [place] vs. transplanted heart: [place] heart Associated angina: without angina Qualified Code(s): I25.10 - Atherosclerotic heart disease of [place] coronary artery without angina pectoris (4) Type 2 diabetes mellitus Qualifiers: Diabetes mellitus detention insulin use: without long haul truck driver use Diabetes mellitus complication status: with neurologic complications Diabetes mellitus complication detail: with polyneuropathy Qualified Code(s): E11.42 - Type 2 diabetes mellitus with diabetic polyneuropathy (5) Hypothyroidism Qualifiers: Hypothyroidism type: unspecified Qualified Code(s): E03.9 - Hypothyroidism, unspecified
[2018-08-10 08:16] LABS: Hemoglobin 7.8 g/dL (12.9-16.9)
[2018-08-10] MEDS: Insulin DETEMIR 100 UNIT/ML X5UNITS SQ SCH (09:15)
[2018-08-10] MEDS: Loratadine 10 MG TABLET PO SCH (09:16)
[2018-08-10] MEDS: Aspirin 325 MG TABLET PO SCH (09:16)
[2018-08-10] MEDS: *HR* OxyCODONE/APAP 5/325 TABLET PO PRN ×2 (09:16→16:26)
[2018-08-10] MEDS: Gabapentin 100 MG CAPSULE PO SCH (09:16)
[2018-08-10] MEDS: Sennosides/Docusate Sodium TABLET PO SCH (09:16)
[2018-08-10] MEDS: Insulin LISPRO 300 UNITS/3 ML VIAL SQ SCH ×2 (09:17→12:44)
--- NOTE | 2018-08-10 09:41 | Discharge Summary ---
- NOTES TO OUTPATIENT PROVIDER Notes to Outpatient Provider: Follow-up with the orthopedic team as scheduled. Orders not resulted at time of discharge: Pending orders 08/09/18 09:42 Red Blood Cells [BBK] Stat Type and Screen [BBK] Stat Date of Encounter: 08/10/18 Time of Encounter: 09:39 - Discharge Diagnosis (1) Left displaced femoral neck fracture Priority: Primary Status: Acute Assessment and Plan: Status post Left hip hemiarthroplasty (2) Anemia Priority: Secondary Status: Chronic Assessment and Plan: Patient refused one pack of RBC transfusion Qualifiers: Anemia type: unspecified type Qualified Code(s): D64.9 - Anemia, unspecified (3) CAD (coronary artery disease) Priority: Secondary Status: Chronic Qualifiers: Coronary Disease-Associated Artery/Lesion type: [place] artery [place] vs. transplanted heart: [place] heart Associated angina: without angina Qualified Code(s): I25.10 - Atherosclerotic heart disease of [place] coronary artery without angina pectoris (4) Type 2 diabetes mellitus Priority: Secondary Status: Chronic Qualifiers: Diabetes mellitus laborer marine terminal insulin use: without laborer marine terminal use Diabetes mellitus complication status: with neurologic complications Diabetes mellitus complication detail: with polyneuropathy Qualified Code(s): E11.42 - Type 2 diabetes mellitus with diabetic polyneuropathy (5) Hypothyroidism Priority: Secondary Status: Chronic Qualifiers: Hypothyroidism type: unspecified Qualified Code(s): E03.9 - Hypothyroidism , unspecified (6) CARLOS (acute kidney injury) Priority: Secondary Status: Resolved (7) DVT prophylaxis Priority: Secondary Status: Acute Hospital course: Mr. Ariza is a 88 year old male past medical history significant for coronary artery disease, GERD, hyperlipidemia, history of [place], and hypothyroidism. Patient presented to the emergency room following a fall when he was trying to get out of his car. Patient found to have a left displaced femoral neck fracture, patient underwent Left hip hemiarthroplasty. Post op wound eventful. Decrease in H&H, blood transfusion indicated but patient refuses. No active sites of bleeding. Patient has had one BM in the past were day. No abdominal discomfort. Patient has been clear from the orthopedic team to be transferred to rehabilitation. Patient is medically stable to be transferred to rehabilitation. - Time Spent with Patient Total time spent providing and/or coordinating discharge services: Greater than 30 minutes - Discharge Medications Prescriptions: Acetaminophen [Tylenol] 650 mg PO Q6HR PRN 30 Days #90 tablet PRN Reason: Fever OxyCODONE/APAP 5/325 [Percocet 5/325 MG] 1 each PO Q6HR PRN 7 Days #20 tablet PRN Reason: Mild To Moderate Pain Aspirin 325 mg PO BID 30 Days #60 tablet Lactulose 10 gm PO BID 30 Days #60 udc Home Medications: Clopidogrel [Plavix] 75 mg PO DAILY 12/12/17 [History] Atorvastatin Calcium [Lipitor] 20 mg PO QPM 08/05/18 [History] Cetirizine HCl [Zyrtec] 10 mg PO DAILY 08/05/18 [History] Ferrous Sulfate [Iron] 325 mg PO TID 08/05/18 [History] Gabapentin [Neurontin] 100 mg PO TID 08/05/18 [History] Levothyroxine [Synthroid] 112 mcg PO 0630 08/05/18 [History] Pantoprazole Sodium [Protonix] 40 mg PO DAILY 08/05/18 [History] Triamcinolone 1 appl TP AD PRN 08/05/18 [History] Acetaminophen [Tylenol] 650 mg PO Q6HR PRN 30 Days #90 tablet 08/10/18 [Rx] Aspirin 325 mg PO BID 30 Days #60 tablet 08/10/18 [Rx] Lactulose 10 gm PO BID 30 Days #60 udc 08/10/18 [Rx] OxyCODONE/APAP 5/325 [Percocet 5/325 MG] 1 each PO Q6HR PRN 7 Days #20 tablet [Rx] Allergies/Adverse Reactions: 3 Allergy/AdvReac Type Severity Reaction Status Date / Time No Known Allergies Allergy Verified 12/12/17 14:33 Date of admission: 08/07/18 09:48 Primary care physician: Edwin Bryant CNP Consults: 08/06/18 19:58 Consult to Occupational Therapy [CONS] Routine Comment: Evaluate, develop and implement POC Reason for Consult: total hip replacement Does patient have active BEDREST order?: No Is patient medically & hemodynamically stable?: Yes Consult to Physical Therapy [CONS] Routine Comment: Evaluate, develop and implement POC Reason for Consult: total hip replacement Does patient have active BEDREST order?: No Is patient medically & hemodynamically stable?: Yes - Constitutional Vitals: Temp Pulse Resp BP Pulse Ox 98.8 F 94 20 111/67 94 08/10/18 07:37 08/10/18 07:37 08/10/18 07:37 08/10/18 07:37 08/10/18 07:37 General appearance: Present: cooperative, mild distress, A&O X 3, pleasant, answers questions appropriately Exam: General: Alert and oriented 2. No oriented to time. Mild distress due to pain. Patient reports having a watery bowel movement yesterday. Cardiovascular: Normal S1 & S2, no rubs, murmurs or gallops. No JVD. Lungs: Clear breath sounds to auscultation bilaterally, no wheezes or crackles. Abdomen: Soft, normo-active bowel sounds in all 4 quadrants. non-tender, no rigidity, no guarding. Extremities: Slightly edematous left lower extremity, mildly tender to touch. clean surgical dressing in the left lower extremity. Neurological: CN II-XII intact. Rest of the physical exam is non contributory - Patient Status Disposition: Transfer SNF Condition: Good Functional capacity at discharge: independent ambulation Overall status at discharge: patient is progressing back to baseline - Discharge Instructions Follow Up With: Edwin Bryant, WAX POURER [Primary Care Provider] - - Diet and Activity Activity: as per physical therapy Diet: diabetic diet - VTE Documentation of Mechanical Device: Intermittent pneumatic compression device
[2018-08-10] MEDS ORDERED: Lactulose Oral Soln 20 GM/30 ML UDC PO SCH (09:45)
--- NOTE | 2018-08-10 09:48 | Orthopedics Progress Note ---
Date of Encounter: 08/10/18 Time of Encounter: 09:46 - Assessment and Plan (1) Left displaced femoral neck fracture Current Visit: No Status: Acute Subjective Interval history: S: Resting in bed comfortably Pain is well-controlled to the left hip O: AFVSS Left hip dressing is intact Neurovascularly intact A: Left hip hemiarthroplasty P: Continue WBAT B/L LE Posterior hip precautions Continue aspirin 325 mg by mouth twice a day for DVT prophylaxis The hemoglobin intraoperatively and given his cardiac history couple with the acute blood loss anemia I did order one unit to be transfused today followed by 20 mg of Lasix Anticipate discharge tomorrow to [facility] Objective Vital signs: Vital Signs Temp Pulse Resp BP Pulse Ox 08/10/18 07:37 98.8 F 94 20 111/67 94 08/09/18 23:39 98.9 F 89 16 112/67 93 08/09/18 20:27 99.2 F 79 16 110/63 98 08/09/18 16:13 97.7 F 89 18 124/70 100 08/09/18 11:36 98.1 F 75 16 96/54 99 Intake and Output 08/09/18 08/10/18 08/10/18 23:59 07:59 15:59 Output Total 550 / 550 150 / 150 Balance -550 / -550 -150 / -150 Output: Urine 550 / 550 150 / 150 Other: # Voids 1 Blood Glucose* 130 91 - Labs CBC & BMP: 08/10/18 07:49 08/09/18 00:30 Labs: Abnormal lab results RBC 2.57 M/mcL (4.19-5.50) L 08/09/18 00:30 Hgb 7.8 g/dL (12.9-16.9) L 08/10/18 07:49 Hct 24.0 % (37.5-50.1) L 08/10/18 07:49 MPV 9.1 fL (9.4-12.4) L 08/09/18 00:30 PT 12.4 Seconds (9.4-12.1) H 08/06/18 01:03 Sodium 133 mEq/L (136-145) L 08/09/18 00:30 BUN 28 mg/dL (8-23) H 08/09/18 00:30 BUN/Creatinine Ratio 29 (6-26) H 08/09/18 00:30 Glucose 123 mg/dL (70-105) H 08/09/18 00:30 Calcium 8.3 mg/dL (8.6-10.3) L 08/09/18 00:30 - VTE Documentation of Mechanical Device: Intermittent pneumatic compression device Consult Discharge Plan - Plan Additional Instructions: DISCHARGE INSTRUCTIONS Dr. Bowers Total Hip Replacement/Hip Hemiarthroplasty Wound Care -Keep wound / incision area clean and dry. Activity -No heavy lifting objects greater than 10 pounds. -No driving while on narcotic pain medication. -You may be weight-bear as tolerated on both of your lower extremities. -Use crutches or a walker for ambulation. -Posterior hip precautions for 6 weeks: No bending the hip past 90 degrees. Do not allow the leg to cross the midline of your body (adduction). No twisting motions. Ask your physical therapist to review these precautions with you. Reducing the Risk of Blood Clots -You will need to complete a total 4 week course of enteric coated aspirin 325 mg twice daily. -Wear knee high compression hose 23 hours per day. Discharge Pain Medications -You will be given a prescription for pain medication. Wean off as tolerated. Do not wait to take the pain medication until the pain is severe, as it will be difficult to "catch up" once this occurs. The pain medication usually reaches its full effect ~1 hour after ingesting. -Your prescribed pain medication may contain Tylenol. You must be careful not to exceed 4,000 mg (4 g) of Tylenol (or generic equivalent), from all sources, within a single 24-hour period. -Some common side effects of the narcotic pain medications (Percocet, Oxycodone , Vicodin, etc) include nausea and itching. Benadryl is a great over the counter medication that helps calm your stomach, decreases your anxiety levels, and minimizes the itching. You can easily purchase this at your local pharmacy as an [id number] medication. Please abide by the instructions as printed on t-he bottle. If your nausea persists, make sure to take small amounts of crackers or other ocularist foods. Follow-Up -Follow-up with Dr. Bowers office in 2 weeks from the surgery date for a post- operative evaluation. -Call the office at [phone] to schedule or confirm your appointment. -Follow up with your primary care physician to discuss testing for bone mineral density. Referrals: Edwin Bryant CNP [Primary Care Provider] - Prescriptions: Acetaminophen [Tylenol] 650 mg PO Q6HR PRN 30 Days #90 tablet PRN Reason: Fever Aspirin 325 mg PO BID 30 Days #60 tablet Lactulose 10 gm PO BID 30 Days #60 udc OxyCODONE/APAP 5/325 [Percocet 5/325 MG] 1 each PO Q6HR PRN 7 Days #20 tablet PRN Reason: Mild To Moderate Pain
--- NOTE | 2018-08-10 10:09 | Physician Discharge Referral ---
ExtendedCare Referral Info Transfer To: SNF - Diagnosis (1) Left displaced femoral neck fracture Priority: Primary Status: Acute (2) Anemia Priority: Secondary Status: Chronic (3) CAD (coronary artery disease) Priority: Secondary Status: Chronic (4) Type 2 diabetes mellitus Priority: Secondary Status: Chronic (5) Hypothyroidism Priority: Secondary Status: Chronic (6) CARLOS (acute kidney injury) Priority: Secondary Status: Resolved (7) DVT prophylaxis Priority: Secondary Status: Acute Prognosis: Good Aware of Diagnosis: Patient Aware of Prognosis: Patient - Transfer Medications Prescriptions: Acetaminophen [Tylenol] 650 mg PO Q6HR PRN 30 Days #90 tablet PRN Reason: Fever OxyCODONE/APAP 5/325 [Percocet 5/325 MG] 1 each PO Q6HR PRN 7 Days #20 tablet PRN Reason: Mild To Moderate Pain Aspirin 325 mg PO BID 30 Days #60 tablet Lactulose 10 gm PO BID 30 Days #60 udc Home Medications: Clopidogrel [Plavix] 75 mg PO DAILY 12/12/17 [History] Atorvastatin Calcium [Lipitor] 20 mg PO QPM 08/05/18 [History] Cetirizine HCl [Zyrtec] 10 mg PO DAILY 08/05/18 [History] Ferrous Sulfate [Iron] 325 mg PO TID 08/05/18 [History] Gabapentin [Neurontin] 100 mg PO TID 08/05/18 [History] Levothyroxine [Synthroid] 112 mcg PO 0630 08/05/18 [History] Pantoprazole Sodium [Protonix] 40 mg PO DAILY 08/05/18 [History] Triamcinolone 1 appl TP AD PRN 08/05/18 [History] Acetaminophen [Tylenol] 650 mg PO Q6HR PRN 30 Days #90 tablet 08/10/18 [Rx] Aspirin 325 mg PO BID 30 Days #60 tablet 08/10/18 [Rx] Lactulose 10 gm PO BID 30 Days #60 udc 08/10/18 [Rx] OxyCODONE/APAP 5/325 [Percocet 5/325 MG] 1 each PO Q6HR PRN 7 Days #20 tablet [Rx] Allergies/Adverse Reactions: 3 Allergy/AdvReac Type Severity Reaction Status Date / Time No Known Allergies Allergy Verified 12/12/17 14:33 - Respiratory Orders None Smoking Cessation: Smoking cessation has been advised. For more information, call the [place] Tobacco Quit Line at 9-498-ZQMR-NOW. - Advance Directives Code Status: Full Code - Mobility Orders Ambulate - Rehabiliation Orders Rehab Potential: Good Rehab Orders: Evaluation for Physical Therapy, Evaluation for Occupational Therapy - Diet Orders Regular CERTIFICATION: I certify that the transfer of the above named patient to an Extended Care Facility is necessary for the continuing treatment of the diagnosis listed. The above information is true and accurate reflection of patient's current condition. Confidential - Redisclosure prohibited without a patient's written consent.
[2018-08-10 12:24] VITALS: BP 114/61
== END 2018-08-10 16:28 | DRG 470 ==
LOC: 3NENU → SUATTDRO 08-07 09:48
PROVIDERS: ADMIT Internal Medicine; ATTEND Internal Medicine